=== PATIENT | male | born 1950 | race Caucasian/White ===

== ENCOUNTER → 2017-09-08 10:24 | Day surgery (SDC) | payer MEDICARE ==
[~2017-09-08 10:24] MED LIST: Flumazenil* 0.1 MG/ML 5 ML MDV ONE; Heparin 2 UNITS/ML IVPREMIX* 2,000 ML IV ONE; Heparin(*) 1000 UNIT/ML 10 ML VIAL CATH LAB IV ONE; Iodixanol* (CONTRAST) 320 MG/ML 100 ML SDV ONE; Ketorolac INJ* 30 MG/ML 1 ML VIAL ONE; LORazepam TAB(*) 1 MG ONE; Lidocaine 1% INJ* 10 MG/ML 30 ML SDV ONE; Midazolam* 1 MG/ML 10 ML VIAL (10 MG) ONE; Naloxone* 0.4 MG/ML 1 ML VIAL ONE; ceFAZolin 1 GM in Dextrose (*) 1 GM/50 ML BAG IVPB SCH; ceFAZolin 1 GM* X ONE DOSE IVPB; fentaNYL* 50 MCG/ML 5 ML VIAL (250 MCG VIAL) ONE; nitroGLYCERIN DRIP* 0 MCG/0 ML BTL ONE
[2017-09-08 11:03] LABS: ABS Basophils 0.1 10^3/ul (0-0.2); ABS Eosinophils 0.3 10^3/ul (0-0.6); ABS Lymphocytes 1.8 10^3/ul (1.0-4.8); ABS Monocytes 0.5 10^3/ul (0-0.8); ABS Neutrophils 4.8 10^3/ul (1.5-7.7); ABS Nucleated RBC 0 10^3/ul; Eosinophil % 4.1 % (0-6); Hematocrit 43 % (42-52); Hemoglobin 14.7 g/dl (14.0-18.0); Mean Corpuscular HGB Conc 34 g/dl (31-36); Mean Corpuscular Hemoglobin 30 pg (27-31); Mean Corpuscular Volume 88 fL (80-94); Mean Platelet Volume 8 um3 (7.4-10.4); Nucleated Red Blood Cells % 0.1; Platelet Count 228 10^3/ul (150-450); Red Blood Count 4.94 10^6/ul (4.0-5.4); Red Cell Distribution Width 14 % (10.5-15); White Blood Count 7.5 10^3/ul (3.5-10.8)
[2017-09-08 11:18] LABS: EGFR Non-African American 56.7 (>60)
[2017-09-08 11:22] LABS: INR 0.82 (0.77-1.02)
[2017-09-08 16:27] VITALS: BP 129/91
--- NOTE | 2017-09-08 17:20 | PN ---
Progress Note - Progress Note Date of Service: 09/08/17 SOAP: Subjective: No pain. No nausea. Objective: Selected Entries 09/08/17 16:15 Pulse Rate 87 Heart Rate 89 Respiratory 20 Rate Blood Pressure 129/91 (mmHg) Blood Pressure 99 Mean O2 Sat by Pulse 94 Oximetry NAD, AAO x 3 Abd is soft, nontender No flank pain Right groin is soft, nontender Dressing with small patch of dried blood 2+ pulses at right CROCHETER, pop and dpa LLE neuromuscular intact Assessment: 66 YOM status post aortogram and bilateral renal arteriogram. The left renal artery is patent. There is greatly diminished arterial filling of the left kidney. Plan: 1. D/C home. 2. Stop Plavix (patient instructed to stop Plavix) 3. No specific IR follow up necessary.
--- NOTE | 2017-09-08 17:40 | RAD ---
CPT II Codes: 6045F Procedure(s) performed: 1. Aortogram. 2. Bilateral renal arteriogram. Date of service: September 08, 2017 Indication for procedure: Atrophic left kidney Comparison: Renal ultrasound dated May 25, 2017 and renal scintigraphy May 20, 2017 Contrast: 25 mL Visipaque 320 Fluoroscopy Time: 2.7 minutes Vessels Accessed: Percutaneous access was obtained with ultrasound guidance in the left common femoral artery in the retrograde direction towards the heart. Catheter arteriography, with the catheter tip located within the lumen of the following arteries, was performed at the suprarenal aorta and left external iliac artery. Anesthesia: Conscious sedation with IV Fentanyl and Versed as well as local 1% lidocaine injected locally at the arteriotomy site. Conscious sedation time: Timeout: 1348 hours Case end: 1420 hours Total conscious sedation time: 32 minutes Additional medications: * The patient received 1 mg of p.o. Ativan prior to the onset of the procedure. PROCEDURE NOTE AND INTRAPROCEDURAL IMAGING FINDINGS: Immediately prior to the procedure the patient signed consent after thoroughly discussing all risks, benefits and alternative therapies. The patient was positioned on the fluoroscopy table in the supine position and the bilateral groins were shaved, prepped and the patient was draped in standard sterile fashion. Using fluoroscopic imaging the location of the left common femoral head was marked externally with a skin marker on the patient's groin. Utilizing sonographic guidance and palpation, the left common femoral artery was cannulated overlying the femoral head with an 18-gauge needle. An ultrasound image was saved. A 0.035" wire was slowly and smoothly advanced into the common femoral artery under fluoroscopic imaging. No buckling of the wire was visualized to indicate dissection. With the wire securing percutaneous arterial access, the needle was removed and a 5-[place] SideArm access sheath was advanced under fluoroscopic control into the common femoral artery retrograde into the infrarenal abdominal aorta securing access. Through the side arm of the access sheath with the tip in the left external iliac artery arteriography of the left common femoral artery demonstrated an appropriate puncture of the common femoral artery above the bifurcation and below the inferior epigastric artery. To further characterize and exactly locate the extent of atherosclerotic disease involving the left renal artery diagnostic catheter arteriography was necessary. A pigtail flush catheter was advanced to the level of the suprarenal abdominal aorta and contrast arteriography was performed. Contrast arteriography depicts a widely patent right renal artery with appropriate right renal blush. The left renal artery is comparatively smaller but patent with greatly diminished arterial blush overlying the left renal cortex. There is atherosclerotic curvature of the infrarenal abdominal aorta above the level of the bifurcation. There is a small infrarenal abdominal aortic aneurysm measuring approximately 3 cm in diameter above the bifurcation. Contrast is seen to properly filling the bilateral common iliac arteries as well as the lumbar branches and inferior mesenteric artery. Arteriography determined that the left renal artery was adequately patent and the patient's left kidney is diminutive due to demyelinization as opposed to arterial insufficiency. No intervention is deemed necessary. After an appropriate resterilization of the arteriotomy and exchange for new sterile gloves, a Minx closure device was deployed at the common femoral arteriotomy and pressure held for approximately 15 minutes. There were no signs of bleeding at the percutaneous arterial access site and the site was dressed with sterile gauze and Tegaderm. The patient tolerated the procedure well and was transferred to angiography holding bay for standard post procedural observation. SUMMARY OF PROCEDURE, IMAGING FINDINGS AND INTERVENTIONS PERFORMED: 1. Diagnostic studies performed: * Arterial access was obtained at the left common femoral artery in the retrograde direction (i.e. towards the heart) with ultrasound guidance. A sonographic image was recorded. * Diagnostic catheter angiography (necessary to perform the appropriate interventions) was performed with the catheter tip in the suprarenal abdominal aorta and left external iliac artery. * Catheter arteriography was performed of the abdominal aorta, bilateral renal arteries and bilateral common iliac arteries. * At the beginning of the procedure arteriography was performed through the side arm of the access sheath to image the distal left external iliac artery, left common femoral artery and proximal superficial femoral artery and femoral profundus. 2. Interpretation of diagnostic studies performed: * Diminutive but adequately patent left renal artery with contrast filling as far as the interlobar and interlobular arteries with greatly diminished arterial blush overlying the left renal cortex. The left kidney is largely devitalized. * The right renal artery is widely patent with appropriate right renal cortex blush. * Arteriography performed for the purpose of deploying a percutaneous arterial closure device demonstrates adequately patent left external iliac artery, common femoral artery and proximal superficial femoral artery and femoral profundus. 3. Surgical interventions performed: * No angioplasty or stenting of the left renal artery was deemed necessary. * Closure of the right common femoral artery was achieved with a Minx closure device followed by 15 minutes of gentle manual pressure. Plan: 1. Aspirin 81 mg p.o. daily for life. 2. The patient was instructed to discontinue Plavix 75 mg daily. 3. No specific interventional radiology follow-up is necessary assuming no left common femoral arteriotomy access site complications arise.
== END | disposition home or self-care (01) ==
LOC: CHICATH 10:24
PROVIDERS: ATTEND Radiology Diagnostic Radiology
DX: I70.1 Atherosclerosis of renal artery (principal); Z87.891 Personal history of nicotine dependence
CPT/HCPCS: 36415; 75625; 76937; 80048; 85025; 85610; 85730; 99156; 99157; A9270-GY; C1887; J0690; J1644; J1885; J2250; J2310; J3010

== ENCOUNTER 2020-03-09 07:19 | Inpatient (IN) ==
[2020-03-09] MEDS ORDERED: Heparin - STEMI 5,000 UNITS/ML 1 ml VIAL IV ONE (07:34)
[2020-03-09] MEDS ORDERED: Ticagrelor 60 mg TAB (NF) PO ONE (07:35)
[2020-03-09] MEDS ORDERED: Heparin 1,000 UNIT/ML 10 ml (10,000 UNITS) CATHLAB/DIALYSIS IV ONE (07:39)
[2020-03-09] MEDS ORDERED: Lidocaine 1% VIAL 10 MG/ML VIAL ONE (07:40)
[2020-03-09] MEDS ORDERED: nitroGLYCERIN DRIP 25,000 MCG/250 ML BTL ONE (07:40)
[2020-03-09] MEDS ORDERED: VERAPAMIL 2.5 MG/ML 2 ML VIAL ** 5 mg/2 ml ONE (07:40)
[2020-03-09] MEDS ORDERED: Heparin 2 UNITS/ML 1000 mls 3,000 ML IV ONE (07:40)
[2020-03-09] MEDS ORDERED: Iodixanol 320 (CONTRAST) 100 ML SDV ONE (07:41)
[2020-03-09 07:43] LABS: ABS Basophils 0.1 10^3/ul (0-0.2); ABS Eosinophils 0.3 10^3/ul (0-0.6); ABS Lymphocytes 3.2 10^3/ul (1.0-4.8); ABS Monocytes 0.7 10^3/ul (0-0.8); ABS Neutrophils 5.5 10^3/ul (1.5-7.7); Hematocrit 42 % (42-52); Hemoglobin 14.7 g/dL (14.0-18.0); Lymphocyte % 32.6 %; Mean Corpuscular HGB Conc 35 g/dL (31-36); Mean Corpuscular Hemoglobin 31 pg (27-31); Mean Corpuscular Volume 87 fL (80-94); Mean Platelet Volume 8.3 fL (7.4-10.4); Nucleated Red Blood Cells % 0.1; Platelet Count 247 10^3/uL (150-450); Red Blood Count 4.83 10^6 /uL (4.18-5.48); Red Cell Distribution Width 15 % (10-15); White Blood Count 9.7 10^3/uL (3.5-10.8)
[2020-03-09] MEDS ORDERED: fentaNYL 100 mcg/2 ml 50 MCG/ML VIAL ONE (07:58)
[2020-03-09] MEDS ORDERED: Midazolam 5 mg/5 ml VIAL 1 mg/ml 5 ml VIAL (5 mg) ONE ×2 (07:58→08:02)
[2020-03-09 07:59] LABS: Activated Partial Thrombo Time 26.6 seconds (26.0-38.0); INR 0.89 (0.82-1.09)
[2020-03-09] MEDS ORDERED: Heparin 5000 UNITS/ML 1 mL VIAL IV SCH (08:00)
[2020-03-09 08:01] LABS: ALT 25 U/L (7-52); AST 19 U/L (13-39); Albumin/Globulin Ratio 1.5 (1-3); Alkaline Phosphatase 93 U/L (34-104); Anion Gap 9 mmol/L (2-11); BUN/Creatinine Ratio 22.8 (8-20); Blood Urea Nitrogen 29 mg/dL (6-24); CO2 Carbon Dioxide 27 mmol/L (22-32); Calcium 9.1 mg/dL (8.6-10.3); Chloride 105 mmol/L (101-111); Creatine Kinase 78 U/L (10-223); EGFR Non-African American 56.2 (>60); Globulin 2.6 g/dL (2-4); Glucose 192 mg/dL (70-100); LDL Cholesterol Direct 143 mg/dL; Lipase 166 U/L (11.0-82.0); Potassium 3.6 mmol/L (3.5-5.0); Sodium 141 mmol/L (135-145); Total Protein 6.6 g/dL (6.4-8.9)
[2020-03-09 08:07] LABS: CKMB ng/mL 8.9 ng/mL (0.6-6.3); Myoglobin 54.6 ng/mL (17.4-105.7)
[2020-03-09 08:18] LABS: Troponin I 0.21 ng/mL (<0.03)
[2020-03-09] MEDS ORDERED: Adenosine 3 MG/ML 2 ml VIAL (6 mg) ONE (08:21)
[2020-03-09] MEDS ORDERED: NitroPRUSSide 25 mg/ml 2 ml VIAL (50 mg) IV ONE (08:27)
[2020-03-09] MEDS: NS 0.9% 1000 ml BAG 1,000 ML IV SCH ×2 (09:15→18:44)
[2020-03-09] MEDS ORDERED: Ondansetron 4 mg VIAL 2 MG/ML 2 ml VIAL IV PRN (09:23)
[2020-03-09] MEDS ORDERED: Ondansetron 4 mg VIAL 2 MG/ML 2 ml VIAL ONE (09:24)
[2020-03-09] MEDS ORDERED: Al Hydrox/Mg Hydrox/Simet LIQ 30 ML UDC PO PRN (09:43)
[2020-03-09] MEDS ORDERED: Al Hydrox/Mg Hydrox/Simet LIQ 30 ML UDC ONE (09:45)
[2020-03-09 10:31] LABS: Troponin I 4.87 ng/mL (<0.03)
[2020-03-09] MEDS ORDERED: Perflutren Lipid Microsphere 3 ML VIAL ONE (11:59)
[2020-03-09 18:19] LABS: Urine Appearance Clear; Urine Bilirubin Negative (Negative); Urine Blood Negative (Negative); Urine Color Yellow; Urine Glucose Negative (Negative); Urine Ketones Negative (Negative); Urine Nitrite Negative (Negative); Urine Protein Negative (Negative); Urine Specific Gravity 1.042 (1.010-1.030); Urine Urobilinogen Negative (Negative)
[2020-03-09 23:48] LABS: Troponin I 26.89 ng/mL (<0.03)
[2020-03-10] MEDS: NS 0.9% 1000 ml BAG 1,000 ML IV SCH (04:45)
[2020-03-10 05:08] LABS: ABS Eosinophils 0.1 10^3/ul (0-0.6); ABS Lymphocytes 1.4 10^3/ul (1.0-4.8); ABS Monocytes 0.8 10^3/ul (0-0.8); ABS Neutrophils 8.3 10^3/ul (1.5-7.7); Eosinophil % 1.1 %; Hematocrit 36 % (42-52); Hemoglobin 12.4 g/dL (14.0-18.0); Lymphocyte % 12.9 %; Mean Corpuscular HGB Conc 35 g/dL (31-36); Mean Corpuscular Hemoglobin 30 pg (27-31); Mean Corpuscular Volume 88 fL (80-94); Mean Platelet Volume 8.1 fL (7.4-10.4); Platelet Count 185 10^3/uL (150-450); Red Cell Distribution Width 14 % (10-15); White Blood Count 10.6 10^3/uL (3.5-10.8)
[2020-03-10 08:20] LABS: TSH Ultra Thyroid Stim Horm 4.75 mcIU/mL (0.34-5.60)
[2020-03-10 09:12] LABS: Albumin 3.4 g/dL (3.2-5.2); Total Bilirubin 0.6 mg/dL (0.2-1.0)
[2020-03-10 09:18] LABS: Albumin/Globulin Ratio 1.8 (1-3); EGFR African American 69.9 (>60); EGFR Non-African American 57.8 (>60); Globulin 1.9 g/dL (2-4); HDL Cholesterol 36.8 mg/dL; Total Protein 5.3 g/dL (6.4-8.9)
[2020-03-11 08:49] LABS: BUN/Creatinine Ratio 21.2 (8-20); Calcium 8.5 mg/dL (8.6-10.3); EGFR African American 74.1 (>60); EGFR Non-African American 61.2 (>60)
[2020-03-11 16:01] VITALS: BP 125/76
== END 2020-03-11 16:50 | disposition home or self-care (01) | DRG 247 ==
LOC: ED 07:19 → ICU 07:50 → MEDTELE 03-10 11:43
PROVIDERS: ADMIT Internal Medicine Cardiovascular Disease; ATTEND Internal Medicine Cardiovascular Disease